=== PATIENT | female | born 1965 | race American Indian/Alaskan Native ===

== ENCOUNTER 2017-08-28 10:05 | Emergency (ER) | payer OTHER ==
[2017-08-28] MEDS ORDERED: TORADOL IM ONE (11:25)
--- NOTE | 2017-08-28 11:25 | Emergency Department Report ---
ED Back Pain/Injury HPI - General Chief Complaint: Back Pain/Injury Stated Complaint: SCIATIC NERVE PAIN Time Seen by Provider: 08/28/17 11:14 Source: patient Limitations: No Limitations - History of Present Illness -: Gradual Place: home Radiation: left leg Severity: moderate Quality: burning Improves With: none Worsens With: movement, other (am) Associated Symptoms: other (a[facility]c [facility]; no [facility] at [facility]; has had pt; no new fall or trauma). denies: confusion, weakness, chest pain, numbness, difficulty walking, cough, difficulty urinating, diaphoresis, incontinence, fever/chills, constipation, headaches, abdominal pain, loss of appetite, malaise, nausea/vomiting, rash, seizure, shortness of breath, syncope - Related Data Previous Rx's Medication Instructions Recorded Last Taken Type Cyclobenzaprine [Flexeril] 10 mg PO TID PRN #10 tablet 08/28/17 Unknown Rx methylPREDNISolone [Medrol] 4 mg PO DAILY #1 tab.ds.pk 08/28/17 Unknown Rx traMADol [Ultram] 50 mg PO Q6HR PRN #10 tablet 08/28/17 Unknown Rx Allergies Allergy/AdvReac Type Severity Reaction Status Date / Time No Known Allergies Allergy Unverified 08/28/17 10:42 ED Review of Systems ROS: Stated complaint: SCIATIC NERVE PAIN Other details as noted in HPI Comment: All other systems reviewed and negative Musculoskeletal: other (lbp rad to lle) ED Past Medical Hx - Past Medical History Hx Hypertension: Yes Additional medical history: CHRONIC BACK PAIN/ GERD - Surgical History Past Surgical History?: Yes Additional Surgical History: FOOT SURGERY ABLATION - Social History Smoking Status: Never Smoker Substance Use Type: Alcohol - Medications Home Medications: Home Medications Medication Instructions Recorded Confirmed Last Taken Type Cyclobenzaprine [Flexeril] 10 mg PO TID PRN #10 tablet 08/28/17 Unknown Rx methylPREDNISolone [Medrol] 4 mg PO DAILY #1 tab.ds.pk 08/28/17 Unknown Rx traMADol [Ultram] 50 mg PO Q6HR PRN #10 tablet 08/28/17 Unknown Rx ED Physical Exam - General Limitations: No Limitations General appearance: alert - Head Head exam: Present: atraumatic - Eye Eye exam: Present: PERRL - ENT ENT exam: Present: mucous membranes moist - Neck Neck exam: Present: normal inspection - Respiratory Respiratory exam: Present: normal lung sounds bilaterally - Cardiovascular Cardiovascular Exam: Present: normal rhythm - GI/Abdominal GI/Abdominal exam: Present: soft - Rectal Rectal exam: Present: deferred - Extremities Exam Extremities exam: Present: normal inspection, full ROM - Back Exam Back exam: Present: normal inspection, other (lbp rad pain to lle ) - Neurological Exam Neurological exam: Present: alert, oriented X3, CN II-XII intact - Psychiatric Psychiatric exam: Present: normal affect, normal mood - Skin Skin exam: Present: warm, dry, intact ED Course Vital Signs 08/28/17 10:42 Temperature 98.5 F Pulse Rate 63 Respiratory 18 Rate Blood Pressure 131/84 O2 Sat by Pulse 100 Oximetry - Reevaluation(s) Reevaluation #1: 08/28/17 12:01 a/c bp to lle [facility] went to [facility] neuro intact no s/s cauda equin ambulatory drove to er medicated dc home w dc poc. ED Medical Decision Making - Medical Decision Making see note - Differential Diagnosis a/c back pain Critical care attestation.: If time is entered above; I have spent that time in minutes in the direct care of this critically ill patient, excluding procedure time. ED Disposition Clinical Impression: Sciatica, Chronic back pain Disposition: DC-01 TO HOME OR SELFCARE Is pt being admited?: No Does the pt Need Aspirin: No Condition: Stable Instructions: Sciatica (ED) Additional Instructions: heat rest exercises per PT [facility] or [facility] MD given below Prescriptions: Cyclobenzaprine [Flexeril] 10 mg PO TID PRN #10 tablet PRN Reason: Muscle Spasm methylPREDNISolone [Medrol] 4 mg PO DAILY #1 tab.ds.pk traMADol [Ultram] 50 mg PO Q6HR PRN #10 tablet PRN Reason: Pain Referrals: PRIMARY CARE, [Primary Care Provider] - 3-5 Days BETO SÁNCHEZ MD [Staff Physician] - 3-5 Days Time of Disposition: 11:47
[2017-08-28 12:36] VITALS: BP 132/84
== END 2017-08-28 12:27 | disposition home or self-care (01) ==
LOC: ED 10:05
DX: M54.32 Sciatica, left side (principal); G89.29 Other chronic pain; I10 Essential (primary) hypertension; Z98.890 Other specified postprocedural states
CPT/HCPCS: 96372; 99282; J1885

== ENCOUNTER 2017-11-14 12:20 | Emergency (ER) | payer OTHER ==
[2017-11-14 13:15] VITALS: BP 136/86
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
[2017-11-14] MEDS ORDERED: TYLENOL PO ONE (16:38)
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
== END 2017-11-14 17:10 | disposition home or self-care (01) ==
LOC: ED 12:20
DX: S39.012A Strain of muscle, fascia and tendon of lower back, initial encounter (principal); S13.4XXA Sprain of ligaments of cervical spine, initial encounter; I10 Essential (primary) hypertension; G89.29 Other chronic pain; V49.49XA Driver injured in collision with other motor vehicles in traffic accident, initial encounter; Y93.89 Activity, other specified; Y92.89 Other specified places as the place of occurrence of the external cause; Y99.8 Other external cause status
CPT/HCPCS: 99282

== ENCOUNTER 2018-03-08 21:34 | Emergency (ER) | payer OTHER ==
[2018-03-09 00:26] LABS: Basophils % (Auto) 0.5 % (0.0-1.8); Eosinophils # (Auto) 0.1 K/mm3 (0.0-0.4); Eosinophils % (Auto) 1.7 % (0.0-4.3); Hematocrit 36.7 % (30.3-42.9); Hemoglobin 12.2 gm/dl (10.1-14.3); Lymphocytes # (Auto) 2.2 K/mm3 (1.2-5.4); Lymphocytes % (Auto) 34.3 % (13.4-35.0); Mean Corpuscular HGB Conc 33 % (30-34); Mean Corpuscular Hemoglobin 28 pg (28-32); Mean Corpuscular Volume 83 fl (79-97); Monocytes # (Auto) 0.4 K/mm3 (0.0-0.8); Monocytes % (Auto) 5.7 % (0.0-7.3); Platelet Count 203 K/mm3 (140-440); Red Blood Count 4.42 M/mm3 (3.65-5.03); Red Cell Distribution Width 13.8 % (13.2-15.2)
[2018-03-09 00:40] LABS: Alanine Aminotransferase 19 units/L (7-56); Albumin 4.6 g/dL (3.9-5); BUN/Creatinine Ratio 23; Blood Urea Nitrogen 18 mg/dL (7-17); Calcium 9.5 mg/dL (8.4-10.2); Hemolysis Index 7; Lipase 51 units/L (13-60)
[2018-03-09 01:17] LABS: Bacteria,Urine 2+ /HPF (Negative); Bilirubin,Urine NEG (Negative); Blood,Urine NEG (Negative); Color,Urine Yellow (Yellow); Mucus,Urine FEW /HPF; Protein,Urine <15 mg/dL mg/dL (Negative); Urobilinogen,Urine < 2.0 mg/dL (<2.0)
[2018-03-09 08:43] VITALS: BP 134/87
--- NOTE | 2018-03-09 10:34 | Emergency Department Report ---
ED Abdominal Pain HPI - General Chief Complaint: Abdominal Pain Stated Complaint: ABD PAIN Time Seen by Provider: 03/09/18 09:55 Source: patient Mode of arrival: Ambulatory Limitations: No Limitations - History of Present Illness Initial Comments: 52-year-old female with a past medical history hypertension, GERD, and chronic back pain just to the hospital complaining of low back pain and increased urinary frequency and urgency since last night. Patient also complains of some vaginal itching but denies discharge. Patient also had greater than 10 episodes of diarrhea since last night. Patient ate garlic shrimp and her family member who also ate the shrimp has similar symptoms. Denies vomiting, fever, or hematuria. - Related Data Previous Rx's Medication Instructions Recorded Last Taken Type Cyclobenzaprine [Flexeril] 10 mg PO TID PRN #10 tablet 08/28/17 Unknown Rx methylPREDNISolone [Medrol] 4 mg PO DAILY #1 tab.ds.pk 08/28/17 Unknown Rx traMADol [Ultram] 50 mg PO Q6HR PRN #10 tablet 08/28/17 Unknown Rx Acetaminophen 500 mg PO Q6H #30 tablet 11/14/17 Unknown Rx Cyclobenzaprine [Flexeril] 10 mg PO QHS PRN #7 tablet 11/14/17 Unknown Rx Loperamide [Imodium] 2 mg PO Q2HR #20 capsule 03/09/18 Unknown Rx Phenazopyridine [Pyridium] 200 mg PO TID #6 tab 03/09/18 Unknown Rx Allergies Allergy/AdvReac Type Severity Reaction Status Date / Time No Known Allergies Allergy Unverified 08/28/17 10:42 ED Review of Systems ROS: Stated complaint: ABD PAIN Other details as noted in HPI Comment: All other systems reviewed and negative ED Past Medical Hx - Past Medical History Hx Hypertension: Yes Additional medical history: CHRONIC BACK PAIN/ GERD - Surgical History Additional Surgical History: FOOT SURGERY ABLATION - Social History Smoking Status: Unknown if ever smoked Substance Use Type: None - Medications Home Medications: Home Medications Medication Instructions Recorded Confirmed Last Taken Type Cyclobenzaprine [Flexeril] 10 mg PO TID PRN #10 tablet 08/28/17 Unknown Rx methylPREDNISolone [Medrol] 4 mg PO DAILY #1 tab.ds.pk 08/28/17 Unknown Rx traMADol [Ultram] 50 mg PO Q6HR PRN #10 tablet 08/28/17 Unknown Rx Acetaminophen 500 mg PO Q6H #30 tablet 11/14/17 Unknown Rx Cyclobenzaprine [Flexeril] 10 mg PO QHS PRN #7 tablet 11/14/17 Unknown Rx Loperamide [Imodium] 2 mg PO Q2HR #20 capsule 03/09/18 Unknown Rx Phenazopyridine [Pyridium] 200 mg PO TID #6 tab 03/09/18 Unknown Rx ED Physical Exam - General Limitations: No Limitations - Other Other exam information: General: No limitations, patient is alert in no acute distress Head exam: Atraumatic, normocephalic Eyes exam: Normal appearance ENT: Moist mucous membrane, normal oropharynx Neck exam: Normal inspection, full range of motion, no meningismus nontender Respiratory exam: Clear to auscultation bilateral, no wheezes, rales, crackles Cardiovascular: Normal rate and rhythm, normal heart sounds Abdomen: Soft, nondistended, and nontender, with normal bowel sounds, no rebound, or guarding : clumping white vag d/c, no odor, no cmt, no external lesions Extremity: Full range of motion normal inspection no deformity Back: Normal Inspection, full range of motion, b/l lower back tenderness, chronic Neurologic: Alert, oriented x3, cranial nerves intact, no motor or sensory deficit Psychiatric: normal affect, normal mood Skin: Warm, dry, intact ED Course Vital Signs 03/08/18 03/09/18 22:45 08:42 Temperature 98.4 F 98.2 F Pulse Rate 86 84 Respiratory 18 15 Rate Blood Pressure 152/97 Blood Pressure 134/87 [Right] O2 Sat by Pulse 98 100 Oximetry ED Medical Decision Making - Lab Data Result diagrams: 03/09/18 00:07 03/09/18 00:07 Lab Results 03/08/18 03/09/18 03/09/18 Range/Units Unknown 00:07 00:07 WBC 6.3 (4.5-11.0) K/mm3 RBC 4.42 (3.65-5.03) M/mm3 Hgb 12.2 (10.1-14.3) gm/dl Hct 36.7 (30.3-42.9) % MCV 83 (79-97) fl MCH 28 (28-32) pg MCHC 33 (30-34) % RDW 13.8 (13.2-15.2) % Plt Count 203 (140-440) K/mm3 Lymph % (Auto) 34.3 (13.4-35.0) % Marshall % (Auto) 5.7 (0.0-7.3) % Eos % (Auto) 1.7 (0.0-4.3) % Baso % (Auto) 0.5 (0.0-1.8) % Lymph # 2.2 (1.2-5.4) K/mm3 Marshall # 0.4 (0.0-0.8) K/mm3 Eos # 0.1 (0.0-0.4) K/mm3 Baso # 0.0 (0.0-0.1) K/mm3 Seg Neutrophils % 57.8 (40.0-70.0) % Seg Neutrophils # 3.6 (1.8-7.7) K/mm3 Sodium 136 L (137-145) mmol/L Potassium 3.7 (3.6-5.0) mmol/L Chloride 96.9 L (98-107) mmol/L Carbon Dioxide 26 (22-30) mmol/L Anion Gap 17 mmol/L BUN 18 H (7-17) mg/dL Creatinine 0.8 (0.7-1.2) mg/dL Estimated GFR > 60 ml/min BUN/Creatinine Ratio 23 % Glucose 166 H (65-100) mg/dL Calcium 9.5 (8.4-10.2) mg/dL Total Bilirubin 0.20 (0.1-1.2) mg/dL AST 17 (5-40) units/L ALT 19 (7-56) units/L Alkaline Phosphatase 98 (35-129) units/L Total Protein 7.0 (6.3-8.2) g/dL Albumin 4.6 (3.9-5) g/dL Albumin/Globulin Ratio 1.9 % Lipase 51 (13-60) units/L Urine Color Yellow (Yellow) Urine Turbidity Clear (Clear) Urine pH 7.0 (5.0-7.0) Ur Specific Jewett 1.025 (1.003-1.030) Urine Protein <15 mg/dl (Negative) mg/dL Urine Glucose (UA) Neg (Negative) mg/dL Urine Ketones Neg (Negative) mg/dL Urine Blood Neg (Negative) Urine Nitrite Neg (Negative) Urine Bilirubin Neg (Negative) Urine Urobilinogen < 2.0 (<2.0) mg/dL Ur Leukocyte Esterase Tr (Negative) Urine WBC (Auto) 2.0 (0.0-6.0) /HPF Urine RBC (Auto) 3.0 (0.0-6.0) /HPF U Epithel Cells (Auto) 2.0 (0-13.0) /HPF Urine Bacteria (Auto) 2+ (Negative) /HPF Urine Mucus Few /HPF wet prep < 20 clue cells, neg yeast, neg trich - Medical Decision Making Urinary symptoms UA, wet prep, labs unremarkable Urology follow-up will be encouraged pyridium for bladder spasm repeat pmd eval and urine testing recommended - Differential Diagnosis UTI, vaginitis, cervicitis, enteritis, food poisoning, diverticulitis Critical Care Time: No Critical care attestation.: If time is entered above; I have spent that time in minutes in the direct care of this critically ill patient, excluding procedure time. ED Disposition Clinical Impression: Urinary frequency, Acute diarrhea Disposition: TO HOME OR SELFCARE Is pt being admited?: No Does the pt Need Aspirin: No Condition: Stable Instructions: Dysuria (ED), Acute Diarrhea (ED) Additional Instructions: Your urine and vaginal exam did not reveal an acute infection at this time. You have been prescribed pyridium to help with bladder spasm symptoms. It is very important that you follow up with your primary care doctor in the next couple days for repeat evaluation. Also follow-up with the urologist provided or with the urologist of your choice. Please return if symptoms worsen as indicated by your discharge instructions. Your gonorrhea and chlamydia tests are pending and take approximately 3-4 days result. You may obtain results in medical records with a photo ID. You may also obtain results through the follow -up doctor office via medical record request. Prescriptions: Loperamide [Imodium] 2 mg PO Q2HR #20 capsule Phenazopyridine [Pyridium] 200 mg PO TID #6 tab Referrals: your, pmd [Other] - 2-3 Days BRODY WOODRUFF MD [Staff Physician] - 3-5 Days (Urology) Time of Disposition: 12:18
== END 2018-03-09 12:23 | disposition home or self-care (01) ==
LOC: ED 21:34
DX: R35.0 Frequency of micturition (principal); R19.7 Diarrhea, unspecified; I10 Essential (primary) hypertension; G89.29 Other chronic pain; K21.9 Gastro-esophageal reflux disease without esophagitis
CPT/HCPCS: 36415; 80053; 81001; 83690; 85025; 87210; 87591

== ENCOUNTER 2019-04-24 14:01 | Outpatient (CLI) | payer OTHER ==
--- NOTE | 2019-04-25 16:04 | Mammography Report ---
BILATERAL DIGITAL SCREENING MAMMOGRAM WITH CAD INDICATION: Screening. COMPARISONS: None. FINDINGS: Craniocaudal and mediolateral oblique views of both breasts were obtained using 2-D digital acquisition. In addition to standard review, the examination was analyzed for possible abnormalities using a computer-assisted detection device (iCAD). The breast tissue is heterogeneously dense, which may obscure small masses. Bilateral asymmetries require additional imaging. No architectural distortion or suspicious calcifica tions. IMPRESSION: Bilateral asymmetries requiring additional imaging.Recommend Recall for Bilateral Spot Compression Vi ews and Bilateral Breast Ultrasound If Needed. BI-RADS CATEGORY 0: INCOMPLETE - NEED ADDITIONAL IMAGING EVALUATION AND/OR PRIOR MAMMOGRAMS FOR COMP ARISON Information is entered into a reminder system for a target due date for the next mammogram. The resul ts and recommendations were sent to the patient by mail. Signer Name: Serafin Baldwin MD Signed: 04/25/2019 3:59 PM Workstation Name: [id number]
== END 2019-04-24 14:02 | disposition home or self-care (01) ==
LOC: SPVWC 14:01
PROVIDERS: ATTEND Student in an Organized Health Care Education/Training Program
DX: Z12.31 Encounter for screening mammogram for malignant neoplasm of breast (principal); I10 Essential (primary) hypertension
CPT/HCPCS: 77067

== ENCOUNTER 2019-06-19 09:34 | Day surgery (SDC) | payer OTHER ==
[~2019-06-19 09:34] MED LIST: DIPRIVAN 10 MG/ML IV ONE; NACL 0.9% 1000 ML 1,000 ML IV SCH
[2019-06-19] MEDS ORDERED: WATER FOR IRRIG STERILE IR ONE (09:43)
[2019-06-19] MEDS ORDERED: XYLOCAINE MPF 2% ONE (10:00)
--- NOTE | 2019-06-19 10:19 | Anesthesia Day of Surgery ---
Anesthesia Day of Surgery - Day of Surgery Patient Examined: Yes Patient H&P Reviewed: Yes Patient is NPO: Yes Beta Blockers: No Cardiac Clearance: No Pulmonary Clearance: No Geremias's Test: N/A
--- NOTE | 2019-06-19 10:23 | Anesthesia Consultation ---
Anesthesia Consult and Med Hx Date of service: 06/19/19 - Airway Anesthetic Teeth Evaluation: Good ROM Head & Neck: Adequate Mental/Hyoid Distance: Adequate Mallampati Class: Class II Intubation Access Assessment: Probably Good - Pulmonary Exam CTA: Yes - Cardiac Exam Cardiac Exam: RRR - Pre-Operative Health Status ASA Pre-Surgery Classification: ASA3 Proposed Anesthetic Plan: General, MAC - Pulmonary Hx Smoking: Yes (QUIT 2014) Hx Sleep Apnea: (HIGH RISK) - Cardiovascular System Hx Hypertension: Yes - Central Nervous System Hx Psychiatric Problems: (TAKES CETIRIZINE) - Gastrointestinal Hx Gastroesophageal Reflux Disease: Yes - Endocrine Hx Non-Insulin Dependent Diabetes: Yes
--- NOTE | 2019-06-19 11:03 | Discharge Summary ---
Short Stay Discharge Plan Activity: advance as tolerated Weight Bearing Status: Weight Bear as Tolerated Diet: regular Follow up with: YASSINE URIBE MD [Primary Care Provider] - 7 Days
--- NOTE | 2019-06-19 11:03 | Operative Report ---
Operative Report Operative Report: Procedure: Colonoscopy with Submucosal Injection, Multiple Cold Snare polypectomies, Hemoclip applications. Attending physician: Mario Barry M.D. Highway Traffic Control Technician: Mario Barry M.D. Indication: Patient is a 53-year-old female who presents for colorectal cancer screening. This colonoscopy serves to evaluate patient so that treatment may be directed based on the findings. Consent: Informed consent was obtained after advising the patient and family regarding nature of this procedure, its indications, potential benefits as well as possible complications including but not limited to bleeding perforation and adverse reaction to medication, infection as well as other cardiopulmonary complications. An informed written and verbal consent was then obtained after due opportunity was provided for questions and answers. Monitoring: Patient was monitored continuously with pulse oximetry and electrocardiographic recordings as well as blood pressure recordings. Vital signs remained stable throughout this procedure with no untoward events. Preoperative assessment: Patient was assessed immediately prior to this procedure for capacity to tolerate monitored anesthesia care and moderate sedation as well as general anesthesia. Patient's ASA classification is 2, Mallampati class is 2, Hyomental distance is 3. Instrument: Olympus video colonoscope CF-HQ 190L Medications: Propofol given intravenously in divided doses. For details please refer to anesthesia records. Description of procedure: Patient was placed in the left lateral decubitus position after achieving sedation, a digital rectal examination was performed following which the colonoscope was introduced into the anal verge and advanced to the cecum which was identified by the cecal valve, the appendiceal orifice, as well as by the cecal strap and direct transillumination. The colonoscope was subsequently withdrawn with careful inspection of all mucosal surfaces. Patient tolerated this procedure well and was subsequently taken to the recovery room. The following findings were noted. Findings: Ovid bowel preparation scale score : 6. : Patient had adequate colonoscopic preparation with no significant residual stool in the right colon and transverse colon and left colon. The overall preparation therefore deemed adequate with a scale score of 6. The withdrawal time from the cecum was greater than 6 minutes. Patient had diverticulosis of moderate severity involving the descending colon and sigmoid colon. The cecum was normal. The ascending colon was normal. The transverse colon was normal. In the ascending colon, patient had an 8 mm sessile polyp which was elevated with submucosal injection of saline and removed by cold snare polypectomy and retrieved. The defect at the polypectomy site was closed with 2 Hemoclips. In the sigmoid colon, patient had an 8 mm flat polyp which was elevated with submucosal injection of saline and removed by cold snare polypectomy and retrieved. The rest of the colon was normal except for the findings of colonic diverticulosis. On a retroflexed view of the anal verge, patient had prominent internal hemorrhoids. Impression: Descending colon polyp status post submucosal injection and cold snare polypectomy with Sigmoid colon polyp status post submucosal injection and cold snare polypectomy. Diverticular disease of the colon. Prominent Internal hemorrhoids. Plan: Follow pathology report. High-fiber diet. Repeat colonoscopy in 5 years if polypectomy is adenomatous. May benefit from hemorrhoidal band ligation if patient is symptomatic
--- NOTE | 2019-06-19 11:28 | Post Anesthesia Evaluation ---
- Post Anesthesia Evaluation Patient Participated: Yes Airway Patent: Yes Stable Respiratory Function: Yes Nausea/Vomiting: No Temp > 96.8F: Yes Pain Manageable: Yes Adequeate Hydration: Yes Anesthesia Complications: No Block Receding Appropriately: Not Applicable Patient on Ventilator: No
[2019-06-19 11:33] VITALS: BP 134/62
== END 2019-06-19 11:34 | disposition home or self-care (01) ==
LOC: GIO 09:34
PROVIDERS: ATTEND Internal Medicine Gastroenterology
DX: Z12.11 Encounter for screening for malignant neoplasm of colon (principal); D12.4 Benign neoplasm of descending colon; K63.5 Polyp of colon; K57.30 Diverticulosis of large intestine without perforation or abscess without bleeding; K64.8 Other hemorrhoids; G62.9 Polyneuropathy, unspecified; E78.00 Pure hypercholesterolemia, unspecified; I10 Essential (primary) hypertension; G47.30 Sleep apnea, unspecified; K21.9 Gastro-esophageal reflux disease without esophagitis; M19.90 Unspecified osteoarthritis, unspecified site; E11.42 Type 2 diabetes mellitus with diabetic polyneuropathy; Z79.899 Other long term (current) drug therapy; Z79.82 Long term (current) use of aspirin; Z79.84 Long term (current) use of oral hypoglycemic drugs; Z87.891 Personal history of nicotine dependence; Z96.651 Presence of right artificial knee joint; Z98.890 Other specified postprocedural states; Z88.8 Allergy status to other drugs, medicaments and biological substances
CPT/HCPCS: 45381; 45385; 82962; 88305; J2704; J7030

== ENCOUNTER 2019-10-19 13:06 | Outpatient (CLI) | payer OTHER ==
--- NOTE | 2019-10-19 15:49 | Mammography Report ---
BILATERAL DIGITAL DIAGNOSTIC MAMMOGRAM WITH CAD 10/19/2019 RIGHT LIMITED BREAST ULTRASOUND INDICATION: Recall for bilateral asymmetries. F/U abnormal mammogram TECHNIQUE: Digital bilateral mammographic imaging was performed. Spot compression views were obtaine d. Limited ultrasound was performed. This examination was interpreted with the benefit of Computer- ded Detection (CAD) analysis. COMPARISON: 04/24/2019 FINDINGS: Breast Density: The breasts are heterogeneously dense, which may obscure small masses. MAMMOGRAPHIC FINDINGS: Additional left mammographic views were performed and are negative. Satisfacto ry effacement of asymmetries. Additional right mammographic views demonstrate partial effacement of r ight upper asymmetries. ULTRASOUND FINDINGS: Targeted ultrasound evaluation was performed of the area of interest. Ultrasou nd of the upper outer right breast was performed and demonstrated several benign cysts. The largest m easures 9 mm at 10:00 10 cm from the nipple no solid mass or shadowing. IMPRESSION: Benign cysts of the right breast and negative left breast. Follow up recommendation: Routine yearly BI-RADS Category 2: Benign. A "normal" or negative report should not discourage follow up or biopsy of a clinically significant f inding. A written summary of these findings will be mailed to the patient. The patient will be entered into a mammography reporting system which will generate a reminder letter for the patient's next appointmen t at the appropriate interval. According to the [employer], yearly mammograms are recommended starting at age 40 and continuing as long as a woman is in good health. Breast MRI is recommended for women with an dav roximately 20-25% or greater lifetime risk of breast cancer, including women with a strong family his tory of breast or ovarian cancer and women who have been treated for Hodgkin's disease. Signer Name: Serafin Baldwin MD Signed: 10/19/2019 3:45 PM Workstation Name: [id number]
== END 2019-10-19 13:07 | disposition home or self-care (01) ==
LOC: SPVWC 13:06
DX: N60.01 Solitary cyst of right breast (principal)
CPT/HCPCS: 77066

== ENCOUNTER 2020-09-17 11:12 | Emergency (ER) | payer OTHER ==
[2020-09-17 12:03] VITALS: BP 125/73
--- NOTE | 2020-09-17 12:56 | Event Note ---
ED Screening Note ED Screening Note: right sided abd pain that began yesterday +nausea able to tolerate PO intake no v/d no fever no dsyuria PMHx DM, HTN, HLD, GERD states she is post menopausal and had an ablation no abd surgical hx pt is currently eating chips, advised if having abd pain to please stay NPO This initial assessment/diagnostic orders/clinical plan/treatment(s) is/are subject to change based on patients health status, clinical progression and re- assessment by fellow clinical providers in the ED. Further treatment and workup at subsequent clinical providers discretion. Patient/guardian urged not to elope from the ED as their condition may be serious if not clinically assessed and managed. Initial orders include: labs, UA
[2020-09-17 14:14] LABS: Bacteria,Urine 1+ /HPF (Negative); Bilirubin,Urine NEG (Negative); Blood,Urine SM (Negative); Color,Urine Yellow (Yellow); Mucus,Urine FEW /HPF; Protein,Urine <15 mg/dL mg/dL (Negative); Urobilinogen,Urine < 2.0 mg/dL (<2.0)
[2020-09-17 14:48] LABS: Basophils % (Auto) 0.7 % (0.0-1.8); Eosinophils # (Auto) 0.1 K/mm3 (0.0-0.4); Hematocrit 39.6 % (30.3-42.9); Hemoglobin 13.1 gm/dl (10.1-14.3); Lymphocytes # (Auto) 2.5 K/mm3 (1.2-5.4); Mean Corpuscular HGB Conc 33 % (30-34); Mean Corpuscular Volume 80 fl (79-97); Monocytes # (Auto) 0.3 K/mm3 (0.0-0.8); Monocytes % (Auto) 5.4 % (0.0-7.3); Platelet Count 220 K/mm3 (140-440); Red Blood Count 4.94 M/mm3 (3.65-5.03); Red Cell Distribution Width 13.8 % (13.2-15.2)
[2020-09-17 15:14] LABS: Alanine Aminotransferase 25 units/L (7-56); Albumin 4.4 g/dL (3.9-5); Blood Urea Nitrogen 11 mg/dL (7-17); Calcium 9.9 mg/dL (8.4-10.2); Hemolysis Index 1
[2020-09-17 15:15] LABS: BUN/Creatinine Ratio 16
[2020-09-17] MEDS ORDERED: SODIUM CHLORIDE 0.9% 1000 ML 1,000 ML IV ONE (15:17)
[2020-09-17] MEDS ORDERED: ONDANSETRON 4 MG/2 ML INJ IV ONE (15:17)
[2020-09-17] MEDS ORDERED: KETOROLAC 30 MG/1 ML INJ IV ONE (15:17)
--- NOTE | 2020-09-17 15:19 | Emergency Department Report ---
ED Abdominal Pain HPI - General Chief Complaint: Abdominal Pain Stated Complaint: ABD PAIN LOWER RIGHT SIDE Time Seen by Provider: 09/17/20 12:55 Source: patient Mode of arrival: Ambulatory Limitations: No Limitations - History of Present Illness Initial Comments: This very pleasant 54-year-old female presents the emergency department chief complaint of 2 days of right lower quadrant abdominal pain with associated nausea. Patient reports this is intermittent sharp pain with a constant dull pain. She rates severity of pain is an 8 out of 10. She denies any radiating pain from her back or to her groin. She denies any similar pain in the past. D enies any previous abdominal surgeries. She has a history of diabetes, hypertension and chronic back pain. She denies associated fever, chills, night sweats, headache, dizziness, blurry vision, vomiting, diarrhea, chest pain, shortness of breath or any other associated symptoms. - Related Data Home Medications Medication Instructions Recorded Confirmed Last Taken Aspirin EC [Halfprin EC] 81 mg PO QDAY 06/19/19 06/19/19 06/17/19 09:00 AtorvaSTATin [Lipitor] 20 mg PO QHS 06/19/19 06/19/19 06/17/19 09:00 Cetirizine HCl [ZyrTEC 10mg cap] 10 mg PO DAILY 06/19/19 06/19/19 06/18/19 09:00 Cyclobenzaprine [Flexeril] 10 mg PO TID PRN 06/19/19 06/19/19 06/18/19 09:00 Lisinopril/Hydrochlorothiazide 1 each PO DAILY 06/19/19 06/19/19 06/18/19 09:00 [Zestoretic 10-12.5 mg Tablet] Metformin HCl [metFORMIN] 1,000 mg PO BID 06/19/19 06/19/19 06/18/19 09:00 Omeprazole 40 mg PO DAILY 06/19/19 06/19/19 06/18/19 09:00 Previous Rx's Medication Instructions Recorded Last Taken Type Meloxicam [Mobic] 15 mg PO DAILY #12 09/17/20 Unknown Rx Ondansetron [Zofran Odt] 4 mg PO Q8HR #30 tab.rapdis 09/17/20 Unknown Rx Allergies Allergy/AdvReac Type Severity Reaction Status Date / Time acetaminophen [From Percocet] Allergy Itching Verified 09/17/20 12:01 hydrocodone Allergy Itching Verified 09/17/20 12:01 ibuprofen Allergy Unknown Verified 06/16/19 15:30 oxycodone [From Percocet] Allergy Itching Verified 09/17/20 12:01 tramadol Allergy Unknown Verified 06/16/19 15:30 ED Review of Systems ROS: Stated complaint: ABD PAIN LOWER RIGHT SIDE Other details as noted in HPI Comment: All other systems reviewed and negative Constitutional: denies: chills, fever Eyes: denies: eye pain, eye discharge, vision change ENT: denies: ear pain, throat pain Respiratory: denies: cough, shortness of breath, wheezing Cardiovascular: denies: chest pain, palpitations Endocrine: no symptoms reported Gastrointestinal: as per HPI, abdominal pain, nausea. denies: vomiting, diarrhea Genitourinary: denies: urgency, dysuria, discharge Musculoskeletal: denies: back pain, joint swelling, arthralgia Skin: denies: rash, lesions Neurological: denies: headache, weakness, paresthesias Psychiatric: denies: anxiety, depression Hematological/Lymphatic: denies: easy bleeding, easy bruising ED Past Medical Hx - Past Medical History Previous Medical History?: Yes Hx Hypertension: Yes Hx Diabetes: Yes Hx Arthritis: Yes Additional medical history: CHRONIC BACK PAIN/ GERD - Surgical History Past Surgical History?: Yes Additional Surgical History: FOOT SURGERY. ABLATION. right knee replacement - Social History Smoking Status: Former Smoker - Medications Home Medications: Home Medications Medication Instructions Recorded Confirmed Last Taken Type Aspirin EC [Halfprin EC] 81 mg PO QDAY 06/19/19 06/19/19 06/17/19 09:00 History AtorvaSTATin [Lipitor] 20 mg PO QHS 06/19/19 06/19/19 06/17/19 09:00 History Cetirizine HCl [ZyrTEC 10mg cap] 10 mg PO DAILY 06/19/19 06/19/19 06/18/19 09:00 History Cyclobenzaprine [Flexeril] 10 mg PO TID PRN 06/19/19 06/19/19 06/18/19 09:00 History Lisinopril/Hydrochlorothiazide 1 each PO DAILY 06/19/19 06/19/19 06/18/19 09:00 History [Zestoretic 10-12.5 mg Tablet] Metformin HCl [metFORMIN] 1,000 mg PO BID 06/19/19 06/19/19 06/18/19 09:00 History Omeprazole 40 mg PO DAILY 06/19/19 06/19/19 06/18/19 09:00 History Meloxicam [Mobic] 15 mg PO DAILY #12 09/17/20 Unknown Rx Ondansetron [Zofran Odt] 4 mg PO Q8HR #30 tab.rapdis 09/17/20 Unknown Rx ED Physical Exam - General Limitations: No Limitations General appearance: alert, in no apparent distress - Head Head exam: Present: atraumatic, normocephalic - Eye Eye exam: Present: normal appearance, PERRL, EOMI Pupils: Present: normal accommodation - ENT ENT exam: Present: normal exam, normal orophraynx, mucous membranes moist - Neck Neck exam: Present: normal inspection, full ROM. Absent: tenderness, meningismus - Respiratory Respiratory exam: Present: normal lung sounds bilaterally. Absent: respiratory distress, wheezes, rales, rhonchi, stridor - Cardiovascular Cardiovascular Exam: Present: regular rate, normal rhythm, normal heart sounds. Absent: systolic murmur, diastolic murmur, rubs, gallop - GI/Abdominal GI/Abdominal exam: Present: soft, tenderness (There is tenderness to the right lower quadrant, no rebound or guarding, negative CVA tenderness bilaterally), normal bowel sounds, other (Negative Mtz sign). Absent: distended, guarding, rebound - Extremities Exam Extremities exam: Present: normal inspection, full ROM, normal capillary refill. Absent: tenderness - Back Exam Back exam: Present: normal inspection, full ROM. Absent: tenderness, CVA tenderness (R), CVA tenderness (L) - Neurological Exam Neurological exam: Present: alert, oriented X3, CN II-XII intact, normal gait - Psychiatric Psychiatric exam: Present: normal affect, normal mood - Skin Skin exam: Present: warm, dry, intact, normal color. Absent: rash ED Course Vital Signs 09/17/20 12:01 Temperature 98.0 F Pulse Rate 62 Respiratory 20 Rate Blood Pressure 125/73 [Right] O2 Sat by Pulse 98 Oximetry ED Medical Decision Making - Lab Data Result diagrams: 09/17/20 13:59 09/17/20 13:59 Lab Results 09/17/20 09/17/20 09/17/20 Range/Units 13:13 13:59 13:59 WBC 5.8 (4.5-11.0) K/mm3 RBC 4.94 (3.65-5.03) M/mm3 Hgb 13.1 (10.1-14.3) gm/dl Hct 39.6 (30.3-42.9) % MCV 80 (79-97) fl MCH 27 L (28-32) pg MCHC 33 (30-34) % RDW 13.8 (13.2-15.2) % Plt Count 220 (140-440) K/mm3 Lymph % (Auto) 44.0 H (13.4-35.0) % [place] % (Auto) 5.4 (0.0-7.3) % Eos % (Auto) 2.0 (0.0-4.3) % Baso % (Auto) 0.7 (0.0-1.8) % Lymph # (Auto) 2.5 (1.2-5.4) K/mm3 [place] # (Auto) 0.3 (0.0-0.8) K/mm3 Eos # (Auto) 0.1 (0.0-0.4) K/mm3 Baso # (Auto) 0.0 (0.0-0.1) K/mm3 Seg Neutrophils % 47.9 (40.0-70.0) % Seg Neutrophils # 2.8 (1.8-7.7) K/mm3 Sodium 137 (137-145) mmol/L Potassium 3.5 L (3.6-5.0) mmol/L Chloride 98.0 (98-107) mmol/L Carbon Dioxide 31 H (22-30) mmol/L Anion Gap 12 mmol/L BUN 11 (7-17) mg/dL Creatinine 0.7 (0.6-1.2) mg/dL Estimated GFR > 60 ml/min BUN/Creatinine Ratio 16 % Glucose 148 H (65-100) mg/dL Calcium 9.9 (8.4-10.2) mg/dL Total Bilirubin 0.20 (0.1-1.2) mg/dL AST 23 (5-40) units/L ALT 25 (7-56) units/L Alkaline Phosphatase 121 (35-129) units/L Total Protein 7.7 (6.3-8.2) g/dL Albumin 4.4 (3.9-5) g/dL Albumin/Globulin Ratio 1.3 % Lipase 51 (13-60) units/L Urine Color Yellow (Yellow) Urine Turbidity Hazy (Clear) Urine pH 6.0 (5.0-7.0) Ur Specific [place] 1.014 (1.003-1.030) Urine Protein <15 mg/dl (Negative) mg/dL Urine Glucose (UA) Neg (Negative) mg/dL Urine Ketones Neg (Negative) mg/dL Urine Blood Sm (Negative) Urine Nitrite Neg (Negative) Urine Bilirubin Neg (Negative) Urine Urobilinogen < 2.0 (<2.0) mg/dL Ur Leukocyte Esterase Mod (Negative) Urine WBC (Auto) 7.0 H (0.0-6.0) /HPF Urine RBC (Auto) 2.0 (0.0-6.0) /HPF U Epithel Cells (Auto) 9.0 (0-13.0) /HPF Urine Bacteria (Auto) 1+ (Negative) /HPF Urine Mucus Few /HPF - Radiology Data Radiology results: report reviewed Cat Scan Report Signed Patient: MARIO MINOR MR#: [id number] : 1965 Acct:[id number] Age/Sex: 54 / F ADM Date: 09/17/20 Loc: ED Attending Dr: Ordering Physician: MAYRA WILHELM Date of Service: 09/17/20 Procedure(s): CT abdomen pelvis w con Accession Number(s): [id number] cc: MAYRA WILHELM CT ABDOMEN AND PELVIS WITH CONTRAST INDICATION / CLINICAL INFORMATION: Right lower quadrant pain, nausea with vomiting. TECHNIQUE: Axial CT images were obtained through the abdomen and pelvis after 100 cc Omnipaque [address] scans at this location are performed using CT dose reduction for ALARA by means of automated exposure control. COMPARISON: None available. FINDINGS: LOWER CHEST: No significant abnormality. LIVER: No significant abnormality. GALLBLADDER: No significant abnormality. BILE DUCTS: No significant abnormality. PANCREAS: No significant abnormality. SPLEEN: No significant abnormality. ADRENALS: No significant abnormality. RIGHT KIDNEY / URETER: No significant abnormality. LEFT KIDNEY / URETER: No significant abnormality. STOMACH / SMALL BOWEL: No significant abnormality. COLON: No significant abnormality. APPENDIX: No significant abnormality. PERITONEUM: No free fluid. No free air. No fluid collection. LYMPH NODES: No significant adenopathy. AORTA / ARTERIES: No significant abnormality. IVC / VEINS: No significant abnormality. URINARY BLADDER: No significant abnormality. REPRODUCTIVE ORGANS: The uterus is enlarged and contains a heterogeneous mass along the uterine body with indistinct margins measuring 4.7 x 4.1 cm on image 68 of series 4. No other significant abnormality. ADDITIONAL FINDINGS: None. SKELETAL SYSTEM: No acute abnormality. There is moderate lumbar spondylosis. IMPRESSION: 1. No acute abnormality. 2. Indeterminate uterine mass may represent a fibroid. A nonemergent pelvic ultrasound would be helpful for further evaluation. Signer Name: Paul Abel MD Signed: 09/17/2020 4:43 PM Workstation Name: [id number] Transcribed By: ERNESTO Dictated By: Paul Abel MD Electronically Authenticated By: Paul Abel MD Signed Date/Time: 09/17/20 1643 DD/ 1639 TD/TT: - Medical Decision Making Patient nontoxic no acute distress. Vital signs stable. She had some right lower quadrant tenderness. Labs are unremarkable. Leyva score is low making acute appendicitis unlikely however I did order a CAT scan that was consistent with a uterine fibroid but no other acute abnormality. Patient was given medication in the emergency department felt better. Recommended outpatient [facility] follow-up for ultrasound and evaluation of the suspected fibroid versus uterine mass. She instructed to return the emerge department any change or worsening symptoms patient verbalized understand the diagnosis, treatment plan and follow-up instructions and all of her questions were answered. - Differential Diagnosis Appendicitis, nephrolithiasis, uterine fibroids Critical care attestation.: If time is entered above; I have spent that time in minutes in the direct care of this critically ill patient, excluding procedure time. ED Disposition Clinical Impression: RLQ abdominal pain, Uterine mass Disposition: - TO HOME OR SELFCARE Is pt being admited?: No Condition: Stable Instructions: Abdominal Pain (ED), Abdominal Pain, Adult, [id number] Prescriptions: Meloxicam [Mobic] 15 mg PO DAILY #12 Ondansetron [Zofran Odt] 4 mg PO Q8HR #30 tab.rapdis Referrals: PRIMARY CARE, [Primary Care Provider] - 3-5 Days ROLAND ESQUIVEL JR, MD [Staff Physician] - 3-5 Days Forms: Work/School Release Form(ED) Time of Disposition: 17:21
--- NOTE | 2020-09-17 16:48 | Cat Scan Report ---
CT ABDOMEN AND PELVIS WITH CONTRAST INDICATION / CLINICAL INFORMATION: Right lower quadrant pain, nausea with vomiting. TECHNIQUE: Axial CT images were obtained through the abdomen and pelvis after 100 cc Omnipaque [address] scans at this location are performed using CT dose reduction for ALARA by means of automated exposure control. COMPARISON: None available. FINDINGS: LOWER CHEST: No significant abnormality. LIVER: No significant abnormality. GALLBLADDER: No significant abnormality. BILE DUCTS: No significant abnormality. PANCREAS: No significant abnormality. SPLEEN: No significant abnormality. ADRENALS: No significant abnormality. RIGHT KIDNEY / URETER: No significant abnormality. LEFT KIDNEY / URETER: No significant abnormality. STOMACH / SMALL BOWEL: No significant abnormality. COLON: No significant abnormality. APPENDIX: No significant abnormality. PERITONEUM: No free fluid. No free air. No fluid collection. LYMPH NODES: No significant adenopathy. AORTA / ARTERIES: No significant abnormality. IVC / VEINS: No significant abnormality. URINARY BLADDER: No significant abnormality. REPRODUCTIVE ORGANS: The uterus is enlarged and contains a heterogeneous mass along the uterine body with indistinct margins measuring 4.7 x 4.1 cm on image 68 of series 4. No other significant abnormal ity. ADDITIONAL FINDINGS: None. SKELETAL SYSTEM: No acute abnormality. There is moderate lumbar spondylosis. IMPRESSION: 1. No acute abnormality. 2. Indeterminate uterine mass may represent a fibroid. A nonemergent pelvic ultrasound would be helpf ul for further evaluation. Signer Name: Paul Abel MD Signed: 09/17/2020 4:43 PM Workstation Name: [id number]
== END 2020-09-17 18:25 | disposition home or self-care (01) ==
LOC: ED 11:12
DX: R10.31 Right lower quadrant pain (principal); R22.9 Localized swelling, mass and lump, unspecified; I10 Essential (primary) hypertension; E11.9 Type 2 diabetes mellitus without complications; M19.90 Unspecified osteoarthritis, unspecified site; Z98.890 Other specified postprocedural states; Z87.891 Personal history of nicotine dependence; Z79.82 Long term (current) use of aspirin; Z79.899 Other long term (current) drug therapy; Z88.8 Allergy status to other drugs, medicaments and biological substances
CPT/HCPCS: 36415; 74177; 80053; 81001; 83690; 85025; 96361; 96374; 96375; 99284; J1885; J2405; J7030; Q9967

== ENCOUNTER 2020-10-13 11:15 | Emergency (ER) | payer MEDICARE, OTHER ==
[2020-10-13 11:27] VITALS: BP 135/70
[2020-10-13] MEDS ORDERED: KETOROLAC 60 MG/2 ML INJ IM ONE (11:32)
--- NOTE | 2020-10-13 12:06 | Emergency Department Report ---
ED Back Pain/Injury HPI - General Chief Complaint: Back Pain/Injury Stated Complaint: BACK PAIN/SCIATICA Time Seen by Provider: 10/13/20 11:27 Source: patient Limitations: No Limitations - History of Present Illness Initial Comments: this is a 54-year-old female nontoxic, well nourished in appearance, no acute signs of distress presents to the ED with c/o of acute on chronic lower back pain. Patient stated that the past 2 days he was moving and developed this pain. Patient denies any radiation of pain. Patient stated has past medical history of bulging lumbar spine disc. Patient denies any trauma. Denies any bladder or bowel instability. Patient denies any urinary symptoms. Denies any fever, chills, nausea, vomiting, headache, stiff neck, chest pain or shortness of breath. Patient denies any numbness or tingling. Patient stated allergies to acetaminophen, hydrocodone, ibuprofen oxycodone and tramadol. Patient stated ibuprofen causes GERD. Denies significant past medical history. MD Complaint: back pain -: days(s) Similar Symptoms Previously: Yes Place: home Radiation: none Severity: mild Severity scale (0 -10): 3 Quality: aching Consistency: intermittent Improves With: immobilization, sitting upright Worsens With: movement, walking Context: while lifting, turning/twisting Associated Symptoms: denies other symptoms. denies: confusion, weakness, chest pain, numbness, difficulty walking, cough, difficulty urinating, diaphoresis, incontinence, fever/chills, constipation, headaches, abdominal pain, loss of appetite, malaise, nausea/vomiting, rash, seizure, shortness of breath, syncope - Related Data Home Medications Medication Instructions Recorded Confirmed Last Taken Aspirin EC [Halfprin EC] 81 mg PO QDAY 06/19/19 06/19/19 06/17/19 09:00 AtorvaSTATin [Lipitor] 20 mg PO QHS 06/19/19 06/19/19 06/17/19 09:00 Cetirizine HCl [ZyrTEC 10mg cap] 10 mg PO DAILY 06/19/19 06/19/19 06/18/19 09:00 Cyclobenzaprine [Flexeril] 10 mg PO TID PRN 06/19/19 06/19/19 06/18/19 09:00 Lisinopril/Hydrochlorothiazide 1 each PO DAILY 06/19/19 06/19/19 06/18/19 09:00 [Zestoretic 10-12.5 mg Tablet] Metformin HCl [metFORMIN] 1,000 mg PO BID 06/19/19 06/19/19 06/18/19 09:00 Omeprazole 40 mg PO DAILY 06/19/19 06/19/19 06/18/19 09:00 Previous Rx's Medication Instructions Recorded Last Taken Type Meloxicam [Mobic] 15 mg PO DAILY #12 09/17/20 Unknown Rx Ondansetron [Zofran Odt] 4 mg PO Q8HR #30 tab.rapdis 09/17/20 Unknown Rx Cyclobenzaprine [Flexeril] 10 mg PO QHS PRN #10 tablet 10/13/20 Unknown Rx Meloxicam [Mobic] 15 mg PO DAILY PRN #12 tablet 10/13/20 Unknown Rx Allergies Allergy/AdvReac Type Severity Reaction Status Date / Time acetaminophen [From Percocet] Allergy Itching Verified 10/13/20 11:23 hydrocodone Allergy Itching Verified 10/13/20 11:23 ibuprofen Allergy Unknown Verified 10/13/20 11:23 oxycodone [From Percocet] Allergy Itching Verified 10/13/20 11:23 tramadol Allergy Unknown Verified 10/13/20 11:23 ED Review of Systems ROS: Stated complaint: BACK PAIN/SCIATICA Other details as noted in HPI Comment: All other systems reviewed and negative Constitutional: denies: chills, fever Eyes: denies: eye pain, eye discharge, vision change ENT: denies: ear pain, throat pain Respiratory: denies: cough, shortness of breath, wheezing Cardiovascular: denies: chest pain, palpitations Endocrine: no symptoms reported Gastrointestinal: denies: abdominal pain, nausea, diarrhea Genitourinary: denies: urgency, dysuria, discharge Musculoskeletal: back pain. denies: joint swelling, arthralgia Skin: denies: rash, lesions Neurological: denies: headache, weakness, paresthesias Psychiatric: denies: anxiety, depression Hematological/Lymphatic: denies: easy bleeding, easy bruising ED Past Medical Hx - Past Medical History Hx Hypertension: Yes Hx Diabetes: Yes Hx Arthritis: Yes Additional medical history: CHRONIC BACK PAIN/ GERD - Surgical History Additional Surgical History: FOOT SURGERY. ABLATION. right knee replacement - Social History Smoking Status: Former Smoker - Medications Home Medications: Home Medications Medication Instructions Recorded Confirmed Last Taken Type Aspirin EC [Halfprin EC] 81 mg PO QDAY 06/19/19 06/19/19 06/17/19 09:00 History AtorvaSTATin [Lipitor] 20 mg PO QHS 06/19/19 06/19/19 06/17/19 09:00 History Cetirizine HCl [ZyrTEC 10mg cap] 10 mg PO DAILY 06/19/19 06/19/19 06/18/19 09:00 History Cyclobenzaprine [Flexeril] 10 mg PO TID PRN 06/19/19 06/19/19 06/18/19 09:00 History Lisinopril/Hydrochlorothiazide 1 each PO DAILY 06/19/19 06/19/19 06/18/19 09:00 History [Zestoretic 10-12.5 mg Tablet] Metformin HCl [metFORMIN] 1,000 mg PO BID 06/19/19 06/19/19 06/18/19 09:00 History Omeprazole 40 mg PO DAILY 06/19/19 06/19/19 06/18/19 09:00 History Meloxicam [Mobic] 15 mg PO DAILY #12 09/17/20 Unknown Rx Ondansetron [Zofran Odt] 4 mg PO Q8HR #30 tab.rapdis 09/17/20 Unknown Rx Cyclobenzaprine [Flexeril] 10 mg PO QHS PRN #10 tablet 10/13/20 Unknown Rx Meloxicam [Mobic] 15 mg PO DAILY PRN #12 tablet 10/13/20 Unknown Rx ED Physical Exam - General Limitations: No Limitations General appearance: alert, in no apparent distress - Head Head exam: Present: atraumatic, normocephalic - Eye Eye exam: Present: normal appearance - Neck Neck exam: Present: normal inspection, full ROM - Respiratory Respiratory exam: Absent: respiratory distress - Cardiovascular Cardiovascular Exam: Present: regular rate - Extremities Exam Extremities exam: Present: normal inspection, full ROM - Back Exam Back exam: Present: normal inspection, full ROM, paraspinal tenderness (Lumbar paraspinal). Absent: tenderness, CVA tenderness (R), CVA tenderness (L), muscle spasm, vertebral tenderness, rash noted - Expanded Back Exam Expanded Back exam: Absent: saddle anesthesia Back exam: Negative Straight Leg Raising: Left, Right - Neurological Exam Neurological exam: Present: alert, oriented X3, normal gait - Psychiatric Psychiatric exam: Present: normal affect, normal mood - Skin Skin exam: Present: warm, dry, intact, normal color. Absent: rash ED Course Vital Signs 10/13/20 11:26 Temperature 98.4 F Pulse Rate 57 L Respiratory 20 Rate Blood Pressure 135/70 O2 Sat by Pulse 100 Oximetry - Reevaluation(s) Reevaluation #1: 10/13/20 12:03 Patient is speaking in full sentences with no signs of distress noted. ED Medical Decision Making - Medical Decision Making Patient is stable was examined by me. There is no spinal tenderness. There is no cauda equina syndrome during examination. No bladder or bowel instability. Patient received Toradol 60 mg IM in the ED which stated that her symptoms has resolved and subsided. Patient is discharged with muscle relaxant. Patient was referred to Follow-up with a primary care doctor in 3-5 days or if symptoms worsen and continue return to emergency room as soon as possible. At time of discharge, the patient does not seem toxic or ill in appearance. No acute signs of distress noted. Patient agrees to discharge treatment plan of care. No further questions noted by the patient. This chart is dictated with using [employer]ation [employer] Critical care attestation.: If time is entered above; I have spent that time in minutes in the direct care of this critically ill patient, excluding procedure time. ED Disposition Clinical Impression: Low back strain Disposition: DC-01 TO HOME OR SELFCARE Is pt being admited?: No Does the pt Need Aspirin: No Condition: Stable Instructions: Lumbosacral Strain Additional Instructions: Follow-up with your primary care doctor in 3-5 days or if symptoms worsen such as bladder or bowel stability, chest pain, short of breath, numbness or tingling sensation in extremities, headache, dizziness, visual changes, nausea vomiting, or abdominal pain, return back to emergency room as was possible. Take Flexeril as prescribed. Do not operate heavy machinery while taking Flexeril due to sedation Prescriptions: Cyclobenzaprine [Flexeril] 10 mg PO QHS PRN #10 tablet PRN Reason: Muscle Spasm Meloxicam [Mobic] 15 mg PO DAILY PRN #12 tablet PRN Reason: Pain , Severe (7-10) Referrals: PRIMARY CARE, [Primary Care Provider] - 3-5 Days TERRIE FELDER MD [Staff Physician] - 3-5 Days Time of Disposition: 12:06
== END 2020-10-13 14:20 | disposition home or self-care (01) ==
LOC: ED 11:15
DX: S39.012A Strain of muscle, fascia and tendon of lower back, initial encounter (principal); I10 Essential (primary) hypertension; E11.9 Type 2 diabetes mellitus without complications; M19.91 Primary osteoarthritis, unspecified site; Z98.890 Other specified postprocedural states; Z87.891 Personal history of nicotine dependence; Z79.84 Long term (current) use of oral hypoglycemic drugs; Z79.899 Other long term (current) drug therapy; Z88.8 Allergy status to other drugs, medicaments and biological substances; X50.9XXA Other and unspecified overexertion or strenuous movements or postures, initial encounter; Y93.89 Activity, other specified; Y92.89 Other specified places as the place of occurrence of the external cause; Y99.8 Other external cause status
CPT/HCPCS: 96372; 99282; J1885